=== PATIENT | male | born 1960 | race African-American/Black ===

== ENCOUNTER 2016-11-16 16:33 | Emergency (ER) | payer SELFPAY ==
[~2016-11-16] VITALS: Ht 185.4 cm; Wt 95.0 kg
[2016-11-16 16:35] VITALS: BP 163/99; PULSE 85; RESP 20; TEMP 98.2; O2SAT 98
[2016-11-16] MEDS ORDERED: TYLE325T PO (17:28)
[2016-11-16] MEDS ORDERED: AMOX250C3 PO (17:28)
[2016-11-16] MEDS ORDERED: DICL50TA3 PO (17:38)
[2016-11-16] MEDS ORDERED: AMOX500T PO (17:38)
--- NOTE | 2016-11-16 17:41 | PD ---
HPI Chief Complaint: Oral / Dental Pain or Problem Time Seen by Provider: 17:39 Travel History International Travel<30 days: No Contact w/Intl Traveler<30days: No Traveled to known affect area: No History of Present Illness HPI 56-year-old black male presents to emergency Department with complaints of right upper tooth #1 pain. He states that he just finished a course of amoxicillin. He has had recurrent pain. Symptoms are mild to moderate. Worse with chewing. Denies any fever chills. No facial swelling. PFSH Past Medical History Narrative Medical History of diet-controlled diabetes Diabetes: Yes (diet controlled) Patient Takes Glucophage: No Tetanus Vaccination: < 5 Years Influenza Vaccination: No Past Surgical History Surgical History: No Previous Surgery Social History Alcohol Use: No Tobacco Use: No Substance Use: No Allergies-Medications (Allergen,Severity, Reaction): Coded Allergies: No Known Allergies (Unverified , 11/16/16) Reported Meds & Prescriptions Reported Meds & Active Scripts Active Diclofenac Sodium DR (Diclofenac Sodium) 50 Mg Tabdr 50 Mg PO TID Amoxicillin 500 Mg Tab 500 Mg PO TID 10 Days Reported Tylenol (Acetaminophen) 325 Mg Tab Unknown Dose PO Q6H PRN Amoxicillin 250 Mg Cap Unknown Dose PO QID Review of Systems Except as stated in HPI: all other systems reviewed are Neg Physical Exam Narrative GENERAL: Well-developed, well-nourished in no acute distress. Nontoxic appearing. HEAD: Normocephalic, atraumatic. EYES: Pupils equal round and reactive. Extraocular motions intact. No scleral icterus. No injection or drainage. ENT: TMs clear without erythema. The external auditory canals clear. Nose: clear . Posterior pharynx is pink and moist. No tonsillar edema or exudate. Uvula midline. Airway patent. Patient complains of pain and tenderness to the right upper maxilla in tooth #1 NECK: Trachea midline.Supple, nontender, moves head freely. No central bony tenderness or spasm. CARDIOVASCULAR: Regular rate and rhythm without murmurs, gallops, or rubs. RESPIRATORY: Clear to auscultation. Breath sounds equal bilaterally. No wheezes , rales, or rhonchi. GASTROINTESTINAL: Abdomen soft, non-tender, nondistended. No hepato-splenomegaly , or palpable masses. No guarding. EXTREMITIES: No clubbing, cyanosis, or edema. No joint tenderness, effusion, or edema noted. BACK: Nontender without deformity or crepitance. No flank tenderness. Data Data Last Documented VS Vital Signs Date Time Temp Pulse Resp B/P (MAP) Pulse Ox O2 Delivery O2 Flow Rate FiO2 11/16/16 16:35 98.2 85 20 163/99 (120) 98 Room Air Orders Orders Amoxicillin (Trimox) (11/16/16 17:45) Acetamin-Hydrocod 325-5 Mg ([place] 5-325 (11/16/16 17:45) MDM Medical Decision Making Medical Screen Exam Complete: Yes Emergency Medical Condition: Yes Medical Record Reviewed: Yes Differential Diagnosis MDM: Moderate Differential diagnoses: Dental abscess, dental caries, osteitis, cellulitis Narrative Course Patient is given Amoxil 500 and Lortab 5 a grams by mouth. This is dentalgia Diagnosis Primary Impression: Dentalgia Patient Instructions: Narcotic given in the ED, General Instructions Additional Instructions: Rest. [place] gargles. [place] oil on cotton balls. Diclofenac and amoxicillin follow-up with a dentist as soon as possible. And return to the ER if any problems. Med/Other Pt SpecificInfo: Prescription(s) given Scripts Diclofenac Sodium DR (Diclofenac Sodium DR) 50 Mg Tabdr 50 MG PO TID, #30 TAB 0 Refills Prov: Real Pressley MD 11/16/16 Amoxicillin (Amoxicillin) 500 Mg Tab 500 MG PO TID for Infection for 10 Days, TAB 0 Refills Prov: Real Pressley MD 11/16/16 Disposition: 01 DISCHARGE HOME Condition: Stable Oliver Abad Nov 16, 2016 17:41
[2016-11-16] MEDS ORDERED: AMOXICILLIN (TRIHYDRATE) 500 MG CAP PO ONE (17:45)
[2016-11-16] MEDS ORDERED: ACETAMINOPHEN/HYDROcodone 325 MG/5 MG TAB PO ONE (17:45)
== END 2016-11-16 17:51 | disposition home or self-care (01) ==
LOC: NEPD 16:33
DX: K08.89 Other specified disorders of teeth and supporting structures (principal); E11.9 Type 2 diabetes mellitus without complications; Z79.82 Long term (current) use of aspirin; Z79.899 Other long term (current) drug therapy
CPT/HCPCS: 99284